=== PATIENT | female | born 1950 | race African-American/Black ===

== ENCOUNTER 2021-06-16 23:27 | Inpatient (IN) ==
[2021-06-17] MEDS ORDERED: SODIUM CHLORIDE 0.9% 1,000 ML IV STA ×2 (00:14→01:53)
[2021-06-17 00:29] LABS: ABG Base Excess 2.2 MMOL/L (-2.5-2.5); ABG HCO3 26.7 MMOL/L (20-26); ABG Oxygen Saturation 98.4 % (95-100); ABG PCO2 41.2 MM HG (35-48); ABG PH 7.429 (7.35-7.45); ABG PO2 165.8 MM HG (80-95); ABG TCO2 27.9 MMOL/L (23-27)
[2021-06-17 01:24] LABS: Basophils % 0.2 % (0.0-0.8); Eosinophils % 0.1 % (0.00-10.9); Hematocrit 38.2 VOL% (35.7-47.0); Hemoglobin 12.3 GM/DL (12.0-16.0); Immature Granulocytes % 0.3 %; Immature Granulocytes Absolute 0.03 #; Lymphocytes # 1.5 10*3/uL (1.4-4.0); Lymphocytes % 14.1 % (21.3-54.2); Mean Corpuscular HGB Conc 32.2 GM/DL (32-36); Mean Corpuscular Volume 75.6 FL (87-102); Mean Platelet Volume 12.1 FL (9.6-12.0); Monocytes % 4.8 % (1.7-12.7); Neutrophils % 80.5 % (38.7-73.9); Platelet Count 328 T/CUMM (130-400); Red Blood Count 5.05 MC/CUMM (3.8-5.5); Red Cell Distribution Width 15.8 % (9.3-17.3); White Blood Count 10.6 T/CUMM (4-12)
[2021-06-17 01:37] LABS: Bilirubin,Urine Negative (Negative); Blood, Urine Negative (Negative); Glucose,Urine (UA) Negative (Negative); Hyaline Casts,Urine 1 /LPF (0-3); Ketones,Urine 5 mg/dL (Negative); Mucus,Urine Occasional /LPF (Occasional); Nitrite,Urine Negative (Negative); Protein,Urine Negative; RBC,Urine <1 /HPF (0-4); Squamous Epithelial Cell,Urine Occasional /HPF (0-10); Urine Appearance CLEAR (Clear); Urine Color Yellow (Yellow); Urine Urobilinogen < 2.0 EU/DL (<2.0)
[2021-06-17] MEDS ORDERED: ROCURONIUM 100 MG/10 ML VIAL IV ONE (01:49)
[2021-06-17] MEDS ORDERED: ETOMIDATE 20 MG/10 ML VIAL IV ONE (01:49)
[2021-06-17] MEDS ORDERED: hydrALAZINE 20 MG/1 ML VIAL IV PRN (01:53)
[2021-06-17] MEDS ORDERED: NICOTINE 21 MG/24 HR PATCH TRANSDERM PRN (01:53)
[2021-06-17] MEDS ORDERED: ONDANSETRON 4 MG/2 ML VIAL IV PRN (01:53)
[2021-06-17] MEDS ORDERED: ALBUTEROL 2.5 MG/3 ML NEB RESP TX PRN (01:53)
[2021-06-17] MEDS ORDERED: ALBUTEROL/IPRATROPIUM 3 ML NEB RESP TX PRN (01:53)
[2021-06-17 02:10] LABS: Alanine Aminotransferase 36 U/L (13-56); Albumin 4.8 G/DL (3.4-5.0); Alkaline Phosphatase 65 U/L (45-117); Aspartate Amino Transferase 48 U/L (0-37); Blood Urea Nitrogen 23 MG/DL (7-18); Calcium 10.3 MG/DL (8.5-10.1); Carbon Dioxide 26 MMOL/L (21-32); Estimated Glom Filtration Rate 58 ML/MIN; Glucose 96 MG/DL (74-106); Osmolality,Calculated 278.7 MOS/KG (273-304); Potassium 4.3 MMOL/L (3.5-5.1); Sodium 138 MMOL/L (136-145); Total Protein 8.9 G/DL (6.4-8.2)
[2021-06-17 02:12] LABS: Salicylate < 2.8 MG/DL (2.8-20)
[2021-06-17 02:13] LABS: Acetaminophen < 2.0 UG/ML (10-30)
[2021-06-17 02:31] LABS: Barbiturates Screen,Urine Negative (Negative); Benzodiazepines Screen,Urine Negative (Negative); Cannabinoid Screen,Urine Negative (Negative); Opiate Screen,Urine Negative (Negative); Phencyclidine Screen,Urine Negative (Negative)
[2021-06-17] MEDS: SODIUM CHLORIDE 0.9% 1,000 ML IV SCH ×4 (02:44→23:18)
[2021-06-17] MEDS ORDERED: MIDAZOLAM 10 MG/2 ML VIAL ONE (03:14)
[2021-06-17] MEDS ORDERED: MIDAZOLAM 10 MG/2 ML VIAL IV ONE (03:15)
[2021-06-17] MEDS ORDERED: MIDAZOLAM 100 MG in SODIUM CHLORIDE 0.9% 80 ML IV PRN (03:19)
[2021-06-17 05:26] LABS: ABG Base Excess -1.1 MMOL/L (-2.5-2.5); ABG HCO3 24.1 MMOL/L (20-26); ABG Oxygen Saturation 98.2 % (95-100); ABG PCO2 42.5 MM HG (35-48); ABG PH 7.372 (7.35-7.45); ABG PO2 161.7 MM HG (80-95); ABG TCO2 25.4 MMOL/L (23-27)
[2021-06-17 06:38] LABS: Basophils % 0.2 % (0.0-0.8); Eosinophils # 0.1 10*3/uL (0.0-0.87); Eosinophils % 0.6 % (0.00-10.9); Hematocrit 33.4 VOL% (35.7-47.0); Hemoglobin 10.8 GM/DL (12.0-16.0); Immature Granulocytes % 0.4 %; Immature Granulocytes Absolute 0.05 #; Lymphocytes # 1.8 10*3/uL (1.4-4.0); Lymphocytes % 14.4 % (21.3-54.2); Mean Corpuscular HGB Conc 32.3 GM/DL (32-36); Mean Corpuscular Volume 76.3 FL (87-102); Mean Platelet Volume 10.8 FL (9.6-12.0); Monocytes % 7.7 % (1.7-12.7); Neutrophils % 76.7 % (38.7-73.9); Platelet Count 279 T/CUMM (130-400); Red Blood Count 4.38 MC/CUMM (3.8-5.5); Red Cell Distribution Width 15.4 % (9.3-17.3); White Blood Count 12.4 T/CUMM (4-12)
[2021-06-17 07:07] LABS: Albumin 3.5 G/DL (3.4-5.0); Bilirubin,Total 0.4 MG/DL (0.20-1.00); Calcium 8.6 MG/DL (8.5-10.1); Osmolality,Calculated 283.1 MOS/KG (273-304)
[2021-06-17] MEDS: ENOXAPARIN 40 MG/0.4 ML SYRINGE SUBCUT SCH (08:24)
[2021-06-17] MEDS: PANTOPRAZOLE 40 MG VIAL IV SCH (08:24)
[2021-06-17] MEDS: DIAZEPAM 5 MG TABLET PO SCH ×5 (08:33→22:19)
[2021-06-17 20:37] VITALS: BP 129/74
[2021-06-18] MEDS: SODIUM CHLORIDE 0.9% 1,000 ML IV SCH ×2 (06:21→14:57)
[2021-06-18] MEDS: PANTOPRAZOLE 40 MG VIAL IV SCH (08:25)
[2021-06-18] MEDS: ENOXAPARIN 40 MG/0.4 ML SYRINGE SUBCUT SCH (08:25)
[2021-06-18] MEDS: DIAZEPAM 5 MG TABLET PO SCH ×2 (08:26→13:59)
[2021-06-18] MEDS ORDERED: ACETAMINOPHEN 325 MG TABLET PO PRN (08:37)
[2021-06-18] MEDS ORDERED: hydroCHLOROthiazide 12.5 MG CAPSULE PO SCH (09:00)
[2021-06-18] MEDS ORDERED: MULTIVITAMIN (OCUVITE) TABLET PO SCH (09:00)
[2021-06-18] MEDS ORDERED: amLODIPine 5 MG TABLET PO SCH (09:00)
[2021-06-18] MEDS ORDERED: ASPIRIN EC 81 MG TABLET PO SCH (09:00)
[2021-06-18] MEDS ORDERED: MULTIVITAMIN (CENTRUM) TABLET PO SCH (09:00)
[2021-06-18] MEDS ORDERED: NEOMYCIN/POLYMYXIN/BACITRACIN OINT 0.9 GM PACK TOP SCH (14:00)
[2021-06-18] MEDS ORDERED: METOPROLOL TARTRATE 25 MG TABLET PO SCH (21:00)
== END 2021-06-18 17:47 | DRG 917 ==
LOC: EDUNIT# → N.ED 23:27 → N.EDINP 06-17 01:53 → N.CC 06-17 03:06
PROVIDERS: ADMIT Internal Medicine; ATTEND Internal Medicine